=== PATIENT | female | born 1955 | race Caucasian/White ===

== ENCOUNTER 2023-01-05 10:51 | Emergency (ER) | payer MEDICARE, SELFPAY ==
[2023-01-05 11:06] VITALS: BP 185/126; PULSE 57; RESP 24; TEMP 36.2; O2SAT 99; BMI 18.9
--- NOTE | 2023-01-05 11:11 | CRLHL7_ITS ---
For Patients: As a result of the Century Cures Act, medical imaging exams and procedure reports are released immediately into your electronic medical record. You may view this report before your referring provider. If you have questions, please contact your health care provider. INDICATION: Injury. TECHNIQUE: Two views of the lumbar spine. COMPARISON: None. FINDINGS: There is a moderate compression fracture of the L1 vertebral body of uncertain chronicity. Remaining vertebral body heights are maintained. Moderate loss of disc height from L2 through L5. Degenerative changes also affect the facet joints in the lower lumbar spine. There are atherosclerotic calcifications in the abdominal aorta. The visualized soft tissues are otherwise unremarkable. IMPRESSION: Age-indeterminate L1 vertebral body compression fracture. Dictated by Delilah Frost MD @ 01/05/2023 12:57:33 PM (Electronically Signed)
--- NOTE | 2023-01-05 11:12 | ED.FALL ---
HPI - Fall General Chief Complaint: Fall/Minor Trauma Stated Complaint: Severe back pain, gate fell on patients back Time Seen by Provider: 01/05/23 10:54 History of Present Illness HPI Narrative: This 67-year-old female comes in with an injury to her back that occurred about an hour prior to arrival. She states that she was working with a gait that and closed her horses. She got her toe caught under the gate and fell backwards in the gait fell on top of her as she went down. She states the gate weighed about 150 lb. She reports severe back pain in her lumbar region. She did not hit her head or have loss of consciousness. She was able to get up and close the gate to secure the horses and walked in to the house to come here for evaluation. She does not report any loss of strength or sensation. Her pain is localized in the lumbar region of her spine. Related Data Previous Rx's Medication Instructions Recorded hydrocodone 5 mg-acetaminophen 325 1 tab PO Q4-6H PRN pain #24 tabs 01/05/23 mg tablet ketorolac 10 mg tablet 10 mg PO Q8H 5 days #15 tabs 01/05/23 ondansetron HCl 4 mg tablet 4 mg PO Q6H #20 tabs 01/05/23 Review of Systems Status of ROS: Reports: 10 or more systems reviewed and unremarkable except as noted in History and below Narrative: Constitutional: No fevers, no weight gain or loss. Eyes: No discharge. No vision changes. HENT: No congestion, no sore throat, no ear pain. Cardiovascular: No chest pain, no palpitations. Respiratory: No shortness of breath, no wheezes, no cough. Gastrointestinal: No abdominal pain, no vomiting, no diarrhea. Genitourinary: No dysuria, no hematuria. Musculoskeletal: Severe pain in the lumbar region of her back. Skin: No rashes, no pruritis. Neurological: No dizziness, weakness, sensory change, speech change. Endo/Heme/Allergies: No bruising or bleeding. No polydipsia. Pysch: no suicidality, no anxiety, no insomnia. All other systems reviewed and are negative. Exam Narrative: Exam Narrative: Constitutional: Well-developed, well-nourished, no acute distress. HEENT: Normocephalic, atraumatic. Neck: Normal range of motion. Nontender. Supple. Heart: Regular. No murmurs. Normal rate. Intact distal pulses. Lungs: Clear to auscultation. No chest discomfort. No wheezes, rhonchi, or rales. Abdomen: Normal bowel sounds. Nontender. No rebound tenderness. Genitalia: Deferred. Back: No midline tenderness when palpating along the whole spine. Pain is localized in the lumbar region of her back. There is no external sign of injury, no laceration or abrasion or bruising. Extremities: Normal range of motion. No injury. Skin: Intact. No rash. Warm. No erythema or pallor. Neurologic: No altered sensation. No weakness. Alert and oriented. Psychiatric: No suicidality. No anxiety or depression. No insomnia. Nursing notes and vitals signs are reviewed. Const: Vital Signs, click to edit/add: Vital Signs - 24 hr 01/05/23 11:06 01/05/23 12:28 Temperature 97.2 F L Pulse Rate [Pulse Oximeter] 57 L 61 Respiratory Rate 24 18 Blood Pressure [Le ft Upper Arm] 185/126 H 149/80 H Pulse Oximetry 99 98 Oxygen Delivery Me thod Room Air Room Air Course Vital Signs Vital signs: Initial Vital Signs Temperature 97.2 F L 01/05/23 11:06 Temperature Source Temporal Artery Scan 01/05/23 11:06 Pulse Rate 57 L 01/05/23 11:06 Respiratory Rate 24 01/05/23 11:06 Blood Pressure 185/126 H 01/05/23 11:06 Blood Pressure Mean 145 H 01/05/23 11:06 Pulse Oximetry 99 01/05/23 11:06 Oxygen Delivery Method Room Air 01/05/23 11:06 Vital Signs Temperature 97.2 F L 01/05/23 11:06 Pulse Rate 57 L 01/05/23 11:06 Respiratory Rate 24 01/05/23 11:06 Blood Pressure 185/126 H 01/05/23 11:06 Pulse Oximetry 99 01/05/23 11:06 Oxygen Delivery Method Room Air 01/05/23 11:06 Temperature 97.2 F L 01/05/23 11:06 Pulse Rate 61 01/05/23 12:28 Respiratory Rate 18 01/05/23 12:28 Blood Pressure 149/80 H 01/05/23 12:28 Pulse Oximetry 98 01/05/23 12:28 Oxygen Delivery Method Room Air 01/05/23 12:28 MDM - Fall MDM Narrative Medical decision making narrative: This patient comes in for evaluation of an injury that occurred just prior to arrival. She is complaining of pain in the low back after a fall that occurred this morning. X-ray imaging of the lumbar spine does show evidence of a compression fracture at L1. An IV was established where the patient received 0.5 mg of Dilaudid and 4 mg Zofran. Prior to discharge she received another dose of Dilaudid 0.5 mg along with Toradol 15 mg. The patient is able to get up and ambulate and has been to the bathroom a couple times. She does complain of severe pain in her low back and reports that she has previous low back pains due to lumbar radiculopathy. She does not have any pain radiating down either leg. Patient is okay to return home and received prescriptions for Toradol, [place], and Zofran. I advised her to follow-up with the spine clinic as needed. Imaging Data XR Lumbar Spine: Radiologist's impression: FINDINGS: There is a moderate compression fracture of the L1 vertebral body of uncertain chronicity. Remaining vertebral body heights are maintained. Moderate loss of disc height from L2 through L5. Degenerative changes also affect the facet joints in the lower lumbar spine. There are atherosclerotic calcifications in the abdominal aorta. The visualized soft tissues are otherwise unremarkable. IMPRESSION: Age-indeterminate L1 vertebral body compression fracture. Discharge Plan Discharge Clinical Impression: Compression fracture Patient Disposition: Home w/ Parent or Adult Condition: Unchanged Additional Instructions: Take medication as needed and indicated. Increase activity as tolerated. Follow up with MD return if worsening. Prescriptions: New hydrocodone-acetaminophen 5-325 mg tablet 1 tab PO Q4-6H PRN (Reason: pain) Qty: 24 0RF ondansetron HCl 4 mg tablet 4 mg PO Q6H Qty: 20 0RF ketorolac 10 mg tablet 10 mg PO Q8H 5 Days Qty: 15 0RF Follow Up/Referrals: Trudi Urbina MD [Primary Care Provider] - Stand Alone Forms: Tier 1 [employer] Info Instructions
[2023-01-05] MEDS: ONDANSETRON 2 MG/ML inj 4 MG IVP (11:30)
[2023-01-05] MEDS: HYDROmorphone 0.5 mg/0.5 ml inj IVP ×2 (11:30→13:19)
[2023-01-05 12:28] VITALS: BP 149/80; PULSE 61; RESP 18; O2SAT 98
[2023-01-05] MEDS: KETOROLAC 30 MG/ML inj 15 MG IVP (13:20)
== END 2023-01-05 13:41 | disposition home or self-care (01) ==
PROVIDERS: Emergency Provider Emergency Medicine Emergency Medical Services; PCP Internal Medicine
DX: S32.019A Unspecified fracture of first lumbar vertebra, initial encounter for closed fracture (principal); W01.0XXA Fall on same level from slipping, tripping and stumbling without subsequent striking against object, initial encounter
CPT/HCPCS: 72100; 96374; 96375; 96376; 99284; J1170; J1885; J2405